=== PATIENT | female | born 1955 | race Caucasian/White ===

== ENCOUNTER 2024-05-26 08:27 | Emergency (ER) | payer MEDICARE, OTHER, SELFPAY ==
[2024-05-26] VITALS (20 sets, daily range): BP systolic 137–192; BP diastolic 75–105; PULSE 70–90; RESP 7–20; TEMP 36.7; O2SAT 94–100; BMI 24.5
[2024-05-26] MEDS: MECLIZINE HCL 25 MG TABLET PO (09:35)
[2024-05-26] MEDS: ONDANSETRON 2 MG/ML inj 4 MG IVP (09:36)
[2024-05-26] MEDS: 0.9 % SODIUM CHLORIDE 500 ML 500 ML IV (09:36)
[2024-05-26 09:41] LABS: Basophils Absolute Auto 0.03 K/uL (0.00-0.30); Basophils Percent Auto 0.5 % (0.0-3.0); Eosinophils Absolute Auto 0.03 K/uL (0.00-0.50); Eosinophils Percent Auto 0.5 % (0.0-7.0); Hematocrit 42.7 % (33.0-51.0); Immature Granulocytes Abs Auto 0.01 K/uL (0.00-0.30); Immature Granulocytes Pct Auto 0.2 %; Lymphocytes Absolute Auto 1.52 K/uL (0.90-2.90); Lymphocytes Percent Auto 27.1 % (20-44); Mean Corpuscular HGB Conc 33 gm/dL (32-36); Mean Corpuscular Hemoglobin 30 pg (26-34); Mean Corpuscular Volume 91 fL (80-100); Monocytes Percent Auto 5.5 % (0.0-11.0); Neutrophils Percent Auto 66.2 % (42.0-72.0); Platelet Count* 259 K/uL (140-440); RDW Coefficient of Variation % 11.8 % (11.5-15.5); Red Blood Count 4.71 m/uL (4.00-5.20)
[2024-05-26 09:55] LABS: Chloride* 102 mmol/L (96-114); Potassium* 4.1 mmol/L (3.6-5.1); Sodium* 141 mmol/L (135-149)
[2024-05-26 09:58] LABS: Anion Gap 11 mEq/L (7-15); Carbon Dioxide* 28 mmol/L (20-32); Creatinine* 0.6 mg/dL (0.5-1.5); Est. Creatinine Clearance* 51.11; Estimated Glomerular Filt Rate 98 ml/min
[2024-05-26 09:59] LABS: Blood Urea Nitrogen* 14 mg/dL (7-30); Calcium* 9.8 mg/dL (8.4-10.6); Glucose* 114 mg/dL (60-115)
[2024-05-26 10:00] LABS: Magnesium* 2.1 mg/dL (1.5-2.6)
[2024-05-26 10:01] LABS: Slide Review Reflex No
[2024-05-26 10:41] LABS: TSH With Reflex to FT4* 0.748 uIU/mL (0.270-4.200)
--- NOTE | 2024-05-26 12:15 | ED.GENADULT ---
HPI - General Adult General Date Seen: 05/26/24 Chief complaint: Dizziness/Vertigo Stated complaint: Dizziness/Tightness in Chest Time Seen by Provider: 05/26/24 08:41 History of Present Illness HPI narrative: Patient is a 69-year-old woman here with her daughter for evaluation of dizziness and chest tightness. She tells me that she started to have dizziness about 5 days ago, they were in [facility] at that time and she thought maybe it was related to dehydration or heat. She has felt intermittently which she describes as lightheaded or off balance, she does not specifically describe spinning or movement sensation but she has had some nausea. She woke up in the middle the night last night feeling dizzy. She feels fine at rest. She has not had any falls or syncope. She also says for a while now she has been getting intermittent chest tightness. This is mild. She did note some today. This is not exertional, comes and goes and does not last very long when it is there. She does not have any chest tightness right now. She has not had any pleuritic pain, lower extremity swelling or pain, shortness of breath. She does have a strong family history of DVT, she says that testing has been equivocal for any kind of her head at [place] clotting disorder. She has no personal history of DVT or PE. She does not smoke. She does have a history of breast cancer, she has been in remission for 10 years. She says that she is worried that her chemotherapy may have done something to her heart and that was part of the reason for decided to come in. She also is worried that she might have something going on her brain related to the cancer is she knows someone who was having dizziness, had imaging and was diagnosed with brain cancer. She has not had headaches, vomiting, diarrhea, black or bloody stools, abdominal pain, back pain, or other neurologic changes. Related Data Previous Rx's ?Medication ?Instructions ?Recorded meclizine 25 mg tablet 25 mg PO TID PRN #15 tabs 05/26/24 meclizine 25 mg tablet 25 mg PO TID PRN #15 tabs 05/26/24 meclizine 25 mg tablet 25 mg PO TID PRN #15 tabs 05/26/24 Allergies Allergy/AdvReac Type Severity Reaction Status Date / Time Gadolinium-Containing Allergy Unknown Verified 05/26/24 09:41 Contrast Medi Review of Systems Status of ROS: Reports: 10 or more systems reviewed and unremarkable except as noted in History and below [facility] Social History Smoking Status: Never smoker Do you use any of these nicotine containing products: None How often do you have a drink containing alcohol: never How often do you have six or more drinks on one occasion: Never AUDIT-C Alcohol total score: 0 Non-prescribed substance use: denies use service: No Exam Narrative: Exam Narrative: Vital signs reviewed In general, alert, nontoxic woman. Breathing easily. Head: Normocephalic, atraumatic. Eyes: Sclera clear. Pupils equal and reactive. No nystagmus. ENT: Mucous membranes moist. Tongue is midline. Cerumen impaction of the right ear. Left is normal. Neck: Supple without adenopathy. Heart: Regular rate and rhythm without murmur. Lungs: Clear. No increased work of breathing, crackles or wheezes. Abdomen: Soft, nontender to palpation. Extremities: Well perfused, pulses intact. No significant edema. No calf tenderness. Neurologic: Alert, conversant. Speech fluent, face symmetric. Moves all extremities equally. Cerebellar function is intact by [id number] testing. Gait is normal. Skin: Warm, dry well perfused. Affect: Normal. Const: Vital Signs, click to edit/add: Vital Signs - 24 hr 05/26/24 08:33 05/26/24 08:54 05/26/24 09:00 Temperature 98.0 F Pulse Rate 85 80 Pulse Rate [Pulse Oximeter] 78 Respiratory Rate 20 13 Blood Pressure Blood Pressure [Le ft Upper Arm] 192/105 H Pulse Oximetry 99 99 99 Oxygen Delivery Me thod Room Air 05/26/24 09:02 05/26/24 09:03 05/26/24 09:15 Temperature Pulse Rate 88 90 80 Pulse Rate [Pulse Oximeter] Respiratory Rate 15 13 16 Blood Pressure 161/91 H Blood Pressure [Le ft Upper Arm] Pulse Oximetry 99 100 98 Oxygen Delivery Me thod 05/26/24 09:17 05/26/24 09:45 05/26/24 09:46 Temperature Pulse Rate 79 81 80 Pulse Rate [Pulse Oximeter] Respiratory Rate 18 11 L 10 L Blood Pressure 145/77 H 155/75 H Blood Pressure [Le ft Upper Arm] Pulse Oximetry 100 96 95 Oxygen Delivery Me thod 05/26/24 09:47 05/26/24 10:00 05/26/24 10:02 Temperature Pulse Rate 82 73 72 Pulse Rate [Pulse Oximeter] Respiratory Rate 15 Blood Pressure 155/82 H Blood Pressure [Le ft Upper Arm] Pulse Oximetry 94 97 99 Oxygen Delivery Me thod 05/26/24 10:03 05/26/24 10:15 05/26/24 10:17 Temperature Pulse Rate 70 73 76 Pulse Rate [Pulse Oximeter] Respiratory Rate Blood Pressure 148/82 H Blood Pressure [Le ft Upper Arm] Pulse Oximetry 99 99 97 Oxygen Delivery Me thod 05/26/24 10:30 05/26/24 10:32 05/26/24 10:32 Temperature Pulse Rate 77 71 71 Pulse Rate [Pulse Oximeter] Respiratory Rate 7 L Blood Pressure 140/79 H 140/79 H Blood Pressure [Le ft Upper Arm] Pulse Oximetry 99 98 98 Oxygen Delivery Me thod 05/26/24 10:45 05/26/24 10:47 Temperature Pulse Rate 77 74 Pulse Rate [Pulse Oximeter] Respiratory Rate 12 11 L Blood Pressure 137/81 Blood Pressure [Le ft Upper Arm] Pulse Oximetry 98 99 Oxygen Delivery Me thod Course Course ED Course: She admits that she does not go to the doctor very frequently. She does have an upcoming recommended 10 year point related to her breast cancer. She saw somebody in clinic for a physical about 5 years ago. She does not have a prior history of hypertension. Diagnostic considerations today would include positional vertigo, stroke, metastases, acute coronary syndrome, dehydration among others. Overall, my suspicion for stroke is low. Symptoms have been positional and present for a number of days, they also seem quite mild. She does not have any other concerning findings on exam. I did do CT scan of the head given her prior cancer history, I do not see any evidence of mass effect, edema or hemorrhage. Final radiology read reviewed and negative. For symptomatic relief I gave her 500 mL of normal saline IV, Zofran and meclizine. She had an EKG, which by my review showed a sinus rhythm, ventricular rate of 81. No acute ST segment changes, unremarkable T-waves. Corrected QT of 422 milliseconds. Her troponin is 0. My suspicion for acute coronary syndrome is low, I did discuss with her that this does not rule out the presence of cardiovascular disease. I would recommend that she follow-up with her primary doctor and get a stress test done given that she has had this intermittent chest tightness for quite some time now. With regard to her dizziness, her CBC is normal, white blood cell count is 5.6 and hemoglobin is 14. Electrolytes are normal, blood sugars 114, magnesium 2.1 and TSH is normal. I do not find any evidence clinically of DVT, she does not complain of shortness of breath, pleuritic chest pain, and she does not have evidence of hypoxia or tachycardia. I do not think a D-dimer as necessary. I think her dizziness is most likely positional vertigo. We did clean out her right ear, will see if that helps her symptomatically. Otherwise, I prescribed meclizine. Recommend that she establish with a primary care doctor for further evaluation of the chest tightness. Return any time for severe or worsening symptoms. Vital Signs Vital signs: Initial Vital Signs Temperature 98.0 F 05/26/24 08:33 Temperature Source Oral 05/26/24 08:33 Pulse Rate 78 05/26/24 08:33 Pulse Rhythm Regular 05/26/24 08:33 Respiratory Rate 20 05/26/24 08:33 Blood Pressure 192/105 H 05/26/24 08:33 Blood Pressure Mean 134 H 05/26/24 08:33 Pulse Oximetry 99 05/26/24 08:33 Oxygen Delivery Method Room Air 05/26/24 08:33 Vital Signs Temperature 98.0 F 05/26/24 08:33 Pulse Rate 78 05/26/24 08:33 Respiratory Rate 20 05/26/24 08:33 Blood Pressure 192/105 H 05/26/24 08:33 Pulse Oximetry 99 05/26/24 08:33 Oxygen Delivery Method Room Air 05/26/24 08:33 Temperature 98.0 F 05/26/24 08:33 Pulse Rate 74 05/26/24 10:47 Respiratory Rate 11 L 05/26/24 10:47 Blood Pressure 137/81 05/26/24 10:47 Pulse Oximetry 99 05/26/24 10:47 Oxygen Delivery Method Room Air 05/26/24 08:33 Medications Administered Medications: Discontinued Medications Generic Name Dose Route Start Last Admin Trade Name Freq PRN Reason Stop Dose Admin Sodium Chloride 500 mls @ 500 mls/hr 05/26/24 09:15 05/26/24 09:36 0.9 % Sodium Chloride 500 Ml IV 05/26/24 10:14 500 mls/hr .Q1H ONE Administration Meclizine HCl 25 mg 05/26/24 09:15 05/26/24 09:35 Meclizine Hcl 25 Mg Tablet PO 05/26/24 09:16 25 mg ONCE ONE Administration Ondansetron HCl 4 mg 05/26/24 09:15 05/26/24 09:36 Ondansetron 2 Mg/Ml Inj IVP 05/26/24 09:16 4 mg ONCE ONE Administration Medical Decision Making Lab Data Labs: Lab Results 05/26/24 Range/Units 09:30 WBC 5.60 (4.50-11.00) K/uL RBC 4.71 (4.00-5.20) m/uL Hgb 14.0 (12.0-16.0) gm/dL Hct 42.7 (33.0-51.0) % MCV 91 (80-100) fL MCH 30 (26-34) pg MCHC 33 (32-36) gm/dL RDW Coeff of Dilshad 11.8 (11.5-15.5) % Plt Count 259 (140-440) K/uL Neut % (Auto) 66.2 (42.0-72.0) % Lymph % (Auto) 27.1 (20-44) % [place] % (Auto) 5.5 (0.0-11.0) % Eos % (Auto) 0.5 (0.0-7.0) % Baso % (Auto) 0.5 (0.0-3.0) % Neut # (Auto) 3.70 (1.7-7.0) K/uL Lymph # (Auto) 1.52 (0.90-2.90) K/uL [place] # (Auto) 0.30 (0.00-0.90) K/UL Eos # (Auto) 0.03 (0.00-0.50) K/uL Baso # (Auto) 0.03 (0.00-0.30) K/uL Abs Immat Gran (auto) 0.01 (0.00-0.30) K/uL Imm/Tot Granulo (auto) 0.2 % Sodium 141 (135-149) mmol/L Potassium 4.1 (3.6-5.1) mmol/L Chloride 102 (96-114) mmol/L Carbon Dioxide 28 (20-32) mmol/L Anion Gap 11 (7-15) mEq/L BUN 14 (7-30) mg/dL Creatinine 0.6 (0.5-1.5) mg/dL Estimated Creat Clear 51.11 Estimated GFR 98 ml/min Glucose 114 (60-115) mg/dL Calcium 9.8 (8.4-10.6) mg/dL Magnesium 2.1 (1.5-2.6) mg/dL TSH 0.748 (0.270-4.200) uIU/mL POC Troponin I 0.00 L (0.01-0.04) ng/ml Imaging Data CT scan - head: Attestation: I have reviewed the pertinent imaging results. Radiologist's impression: Patient: Katia Cox MR#: [id number] : 1955 Acct:[id number] Loc: ED Service Date: 05/26/[address]: Ordering Physician: Barbara Carter M.D. Date of Service: 05/26/24 Procedure(s): CT head/brain wo con Accession Number(s): [id number] cc: Barbara Carter M.D.~ For Patients: As a result of the Cures Act, medical imaging exams and procedure reports are released immediately into your electronic medical record. You may view this report before your referring provider. If you have questions, please contact your health care provider. INDICATION: Vertigo for 3 days. History of breast cancer COMPARISON: None TECHNIQUE: CT examination of the head was performed as axial sections without intravenous contrast. Images were obtained from the vertex of the skull through the skull base. Please note that all CT scans at this facility use dose modulation, iterative reconstruction, and/or weight-based dosing when appropriate to reduce radiation dose to as low as reasonably achievable. FINDINGS: The brain shows no sign of mass lesion, mass effect, hemorrhage, or edema. The ventricles and sulci are normal in appearance for the patient`s age. The visualized portions of the orbits are normal in appearance. The osseous structures are normal in their appearance with no sign of abnormality in the skull base or calvarium. IMPRESSION: Normal unenhanced head CT. No visible cause for vertigo. Please note that all CT scans at this facility use dose modulation, iterative reconstruction, and/or weight-based dosing when appropriate to reduce radiation dose to as low as reasonably achievable. Dictated by Cesar Brady MD @ 05/26/2024 9:41:53 AM Discharge Plan Discharge Clinical Impression: Dizziness, Chest tightness Patient Disposition: Home, Self-Care Condition: Improved Instructions: Chest Pain (DC), Dizziness (ED) Additional Instructions: You can use meclizine as needed to see if that helps with your dizziness. Maintain hydration. Recommend primary care follow-up for further discussion of your chest tightness and to schedule stress test. If you have severe uncontrolled symptoms of any kind, return to the ER. Prescriptions: New meclizine 25 mg tablet 25 mg PO TID PRNQty: 15 0RF meclizine 25 mg tablet 25 mg PO TID PRNQty: 15 0RF meclizine 25 mg tablet 25 mg PO TID PRNQty: 15 0RF Follow Up/Referrals: Provider,Not a Local [Primary Care Provider] - Stand Alone Forms: InvierteMe,SL Info Instructions
== END 2024-05-26 12:29 | disposition home or self-care (01) ==
PROVIDERS: Emergency Provider Emergency Medicine
DX: R42 Dizziness and giddiness (principal); R07.89 Other chest pain
CPT/HCPCS: 36415; 70450; 80048; 83735; 84443; 84484; 85025; 96374; 99284; A9270; J2405; J7030